=== PATIENT | female | born 1975 | race Caucasian/White ===

== ENCOUNTER → 2017-03-23 | Outpatient (CLI) | payer MEDICARE, OTHER ==
[2017-03-23 17:18] LABS: Basophils % (A) 0 %; Eosinophils % (A) 0 %; HCT 42.4 % (34.0-46.0); HGB 13.3 gm/dL (11.4-16.0); Lymphocytes % (A) 11 %; MCH 29.4 pg (25.0-35.0); MCHC 31.4 g/dL (31.0-37.0); MCV 93.5 fL (80.0-100.0); Mean Platelet Volume 7.9; Monocytes # (A) 0.2 k/uL (0-1.0); Monocytes % (A) 2 %; Neutrophils % (A) 86 %; Platelet Count 211 k/uL (150-450); RBC 4.53 m/uL (3.80-5.40); RDW 13.4 % (11.5-15.5); WBC 9.3 k/uL (3.8-10.6)
== END | disposition home or self-care (01) ==
LOC: LABPAT 16:21
PROVIDERS: ATTEND Obstetrics & Gynecology
DX: Z01.812 Encounter for preprocedural laboratory examination (principal); N93.8 Other specified abnormal uterine and vaginal bleeding; T83.89XA Other specified complication of genitourinary prosthetic devices, implants and grafts, initial encounter; N94.10 Unspecified dyspareunia
CPT/HCPCS: 85025

== ENCOUNTER 2017-03-24 08:50 | Day surgery (SDC) | payer MEDICARE, OTHER ==
[2017-03-23 10:40] VITALS: BMI 21.1
[~2017-03-24 08:50] MED LIST: DEXAMETHASONE SOD PHOSPHATE 10 MG/ML 1 ML VIAL IV ONE; LACTATED RINGERS 1,000 ML IV SCH; MIDAZOLAM 2 MG/2 ML VIAL IV PRN; MORPHINE SULFATE 4 MG/ML SYRINGE IV PRN; ONDANSETRON 4 MG/2 ML VIAL IVP ONE; Pre Op ABX Message 1 EACH MISC MISCELLANE ONE; SCOPOLAMINE 1.5MG/72HR PATCH TRANSDERM ONE
[2017-03-24 09:15] VITALS: RESP 16; TEMP 9.3
[2017-03-24] MEDS ORDERED: LIDOCAINE 1% 20 ML VIAL (10MG/ML) FOR IV START INTRADERMA ONE (09:17)
[2017-03-24] MEDS ORDERED: fentaNYL (PF) 50 MCG/ML 2 ML AMP ONE (09:31)
[2017-03-24] MEDS ORDERED: LIDOCAINE 1% INJ 10MG/ML (20 ML MDV) ONE (09:31)
[2017-03-24] MEDS ORDERED: MIDAZOLAM 2 MG/2 ML VIAL ONE (09:31)
[2017-03-24] MEDS ORDERED: PROPOFOL 10 MG/ML 20 ML VIAL IV ONE (09:31)
[2017-03-24] MEDS ORDERED: SORBITOL 3% IRRIG 3,000 ML BAG IRRIGATION ONE ×2 (09:53)
[2017-03-24] MEDS ORDERED: METOCLOPRAMIDE 5 MG/ML 2 ML VIAL IVP PRN (10:07)
[2017-03-24] MEDS ORDERED: KETOROLAC 30 MG/ML 1 ML VIAL IVP PRN (10:07)
[2017-03-24] MEDS ORDERED: Acetaminophen-Codeine 300-30mg TAB PO PRN ×2 (10:07)
[2017-03-24] MEDS ORDERED: SIMETHICONE 80 MG CHEWABLE PO PRN (10:07)
[2017-03-24] MEDS ORDERED: IBUPROFEN 600 MG TAB PO PRN (10:07)
[2017-03-24] MEDS ORDERED: diphenhydrAMINE 50 MG/ML 1 ML VIAL IVP PRN (10:07)
[2017-03-24] MEDS ORDERED: ONDANSETRON 4 MG/2 ML VIAL IVP PRN (10:07)
--- NOTE | 2017-03-24 10:14 | P.OP ---
Date of Procedure: 03/24/17 Preoperative Diagnosis: #1. Retained portion of IUD #2. Pelvic pain Postoperative Diagnosis: Same Procedure(s) Performed: #1. Diagnostic hysteroscopy #2. Dilation and curettage #3. Removal of retained portion of IUD Anesthesia: LINDY Surgeon: Jamal Mccarthy Estimated Blood Loss (ml): 5 IV fluids (ml): 300 Urine output (ml): 5 Pathology: other (Endometrial curettings and arm of IUD) Condition: stable Disposition: PACU Operative Findings: Prior to surgery, the patient had presented to the office with pelvic pain and a ParaGard IUD protruding from the cervix. It was removed but fractured at the junction of the 2 arms and stem with one arm remaining inside the uterus. As result, she was taken the operating room where she underwent the above procedures. Diagnostic hysteroscopy failed to identify the arm. The curettage demonstrated the arm to be in the left lateral posterior lower portion of the uterus and was ultimately removed with curettage and a polyp forceps. There was otherwise no apparent pathology inside the uterine cavity. The bilateral tubal ostia were seen. There was some shaggy tissue which was removed and sent for pathological diagnoses. Description of Procedure: The patient was prepped and draped in usual fashion after general endotracheal anesthesia was administered by the anesthesiologist. A weighted speculum was placed in the bladder draining approximate 5 mL of clear veto urine. The anterior lip of the cervix was grasped with a single-tooth tenaculum and the uterus sounded to approximately 7-8 cm. Serial dilation was carried out to admit the diagnostic hysteroscope which was placed to the fundus. The cavity was distended with sorbitol and the findings are as noted above. The arm of the IUD was not visualized. There was some shaggy tissue noted in the midportion of the fundus. Further dilation was then carried out after setting scope aside. A medium sharp curette was introduced and the uterine cavity and careful and gentle circumferential curettage was carried out. The IUD was felt in the left posterior lower uterine segment with the curette. All of the tissue in the endometrial cavity was curetted onto a Telfa in the vagina. The IUD was not at that time produced. A polyp forceps was then introduced into the cavity and several attempts made to grasp the IUD at which time it was removed. All instrumentation was then removed including the single-tooth tenaculum. There was no ongoing bleeding at the sites of the tenaculum. Estimated blood loss for the case was less than 5 mL. There were no complications. All sponge, instrument, and needle counts were correct. The patient tolerated the procedure well and proceeded to the recovery room in stable condition.
[2017-03-24] MEDS ORDERED: LACTATED RINGERS 1,000 ML IV SCH (10:15)
[2017-03-24] MEDS ORDERED: ALBUTEROL NEBULIZED 2.5 MG/3 ML INHALATION ONE (10:32)
[2017-03-24] MEDS ORDERED: HYDROcodone/APAP 5-325MG 1 EACH TAB PO ONE (11:26)
[2017-03-24 12:10] VITALS: BP 128/68; PULSE 98
== END 2017-03-24 12:45 | disposition home or self-care (01) ==
LOC: OR 08:50
PROVIDERS: ATTEND Obstetrics & Gynecology
DX: T83.39XA Other mechanical complication of intrauterine contraceptive device, initial encounter (principal); N94.10 Unspecified dyspareunia; J45.909 Unspecified asthma, uncomplicated; Z79.1 Long term (current) use of non-steroidal anti-inflammatories (NSAID); Z79.51 Long term (current) use of inhaled steroids; Z79.899 Other long term (current) drug therapy; Z79.891 Long term (current) use of opiate analgesic
CPT/HCPCS: 58558; 81025; 88305; 58300; J2250; J1100; J2405; J2001; J3010; J1885; J2704

== ENCOUNTER 2019-10-06 09:11 | Day surgery (SDC) | payer MEDICARE, OTHER ==
[2019-09-28 13:04] VITALS: BMI 25.8
[~2019-10-06 09:11] MED LIST changes: -DEXAMETHASONE SOD PHOSPHATE 10 MG/ML 1 ML VIAL IV ONE; -MIDAZOLAM 2 MG/2 ML VIAL IV PRN; -MORPHINE SULFATE 4 MG/ML SYRINGE IV PRN; -ONDANSETRON 4 MG/2 ML VIAL IVP ONE; -Pre Op ABX Message 1 EACH MISC MISCELLANE ONE; -SCOPOLAMINE 1.5MG/72HR PATCH TRANSDERM ONE
[2019-10-06] MEDS ORDERED: LIDOCAINE 1% (10MG/ML) FOR IV START INTRADERMA ONE (09:50)
[2019-10-06 09:54] VITALS: RESP 16; TEMP 97.2
[2019-10-06] MEDS ORDERED: PROPOFOL 10 MG/ML 20 ML VIAL IV ONE (11:07)
[2019-10-06] MEDS ORDERED: LIDOCAINE 1% INJ 10MG/ML (20 ML MDV) ONE (11:07)
--- NOTE | 2019-10-06 11:41 | P.PCN ---
Date of Procedure: 10/06/19 Description of Procedure: BRIEF HISTORY: Patient is a 44-year-old female presenting for outpatient colonoscopy for evaluation of rectal bleed. No prior endoscopic evaluation reported. No family history of colon cancer. PROCEDURE PERFORMED: Colonoscopy. PREOPERATIVE DIAGNOSIS: Rectal bleeding, no prior colonoscopy. ESTIMATED BLOOD LOSS: Minimal. IV sedation per Anesthesia. PROCEDURE: After informed consent was obtained, the patient, was brought into the endoscopy unit. IV sedation was administered by Anesthesia under continuous monitoring. Digital rectal examination was normal. Initially the Olympus CF-190 flexible video colonoscope was then inserted in the rectum, gradually advanced into the cecum without any difficulty. Careful examination was performed as the scope was gradually being withdrawn. Ileocecal valve and the appendiceal orifice were visualized and appeared normal, and the terminal ileum was intubated and appeared normal. Prep was excellent. Mucosa of the cecum, ascending colon, transverse colon, descending colon, sigmoid colon, and rectum appeared normal. Retroflexion was performed in the rectum and no lesions were seen, low-grade internal hemorrhoids noted. The patient tolerated the procedure well. IMPRESSION: Low-grade internal hemorrhoids. Otherwise normal-appearing colon from rectum to cecum and normal appearing terminal ileum. RECOMMENDATIONS: Findings of this examination were discussed with the patient. Okay to resume diet. Okay to resume medications. Discussion with the patient about local hemorrhoidal care in case of further bleeding. Otherwise repeat colonoscopy should be at age 52 for screening purposes.
[2019-10-06 11:53] VITALS: BP 113/74; PULSE 69
== END 2019-10-06 12:32 | disposition home or self-care (01) ==
LOC: ORWHC2ENDO 09:11
PROVIDERS: ATTEND Internal Medicine
DX: K64.8 Other hemorrhoids (principal); J45.909 Unspecified asthma, uncomplicated; F32.9 Major depressive disorder, single episode, unspecified; Z79.51 Long term (current) use of inhaled steroids; Z79.899 Other long term (current) drug therapy; Z98.890 Other specified postprocedural states; Z98.891 History of uterine scar from previous surgery; Z87.891 Personal history of nicotine dependence
CPT/HCPCS: 45378; 81025; J2001; J2704